=== PATIENT | male | born 1950 | race Caucasian/White ===

== ENCOUNTER 2017-03-21 09:36 | Emergency (ER) | payer OTHER, SELFPAY ==
[2017-03-21 09:39] VITALS: RESP 18; O2SAT 100
[2017-03-21 09:40] VITALS: BMI 34.7
[2017-03-21] MEDS ORDERED: Sodium Chloride 0.9% 1,000 ML IV STA (09:50)
[2017-03-21] MEDS ORDERED: Insulin Regular 1 UNITS/0.01 ML ML IV STA (09:51)
[2017-03-21] MEDS ORDERED: Metoprolol Succinate 50 mg XL Tab PO STA (09:54)
--- NOTE | 2017-03-21 10:04 | ED PDOC ---
Arrival/HPI - General Chief Complaint: Medical Clearance Time Seen by Provider: 03/21/17 09:40 Historian: Patient - History of Present Illness Narrative History of Present Illness (Text): 03/21/17 10:03 66yo male with PMHx significant for hypertension, Diabetes, CAD with 2stents in place, isacc [facility] for his medications. Patient states he have not taken his medications in 2days. He otherwise denies any somatic complaints, chest pain, nausea, vomiting, focal weakness, headache, polyuria/dipsia, any other complaint. Past Medical History - Provider Review Nursing Documentation Reviewed: Yes - Infectious Disease Hx of Infectious Diseases: None - Tetanus Immunization Tetanus Immunization: Unknown - Cardiac Hx Hypertension: Yes - Pulmonary Hx Bronchitis: No Hx Chronic Obstructive Pulmonary Disease (COPD): No Hx Emphysema: No - Neurological Hx Paralysis: No - HEENT Hx HEENT Disorder: No Hx Blind: No Hx Cataracts: No Hx Deafness: No Hx Difficulty Chewing: No Hx Epistaxis: No Hx Glaucoma: No Hx Macular Degeneration: No - Renal Hx Renal Failure: No - Endocrine/Metabolic Hx Diabetes Mellitus Type 1: Yes (DIABETES TYPE 2 Dx 15 yrs ago) Hx Hyperthyroidism: No Hx Hypothyroidism: No - Hematological/Oncological Hx Blood Transfusions: No Hx Blood Transfusion Reaction: No - Integumentary Hx Dermatological Disorder: No Hx Basal Cell Carcinoma: No Hx Eczema: No Hx Melanoma: No Hx Psoriasis: No Hx Squamous Cell Carcinoma: No - Musculoskeletal/Rheumatological Hx Musculoskeletal Disorders: Yes - Gastrointestinal Hx Crohn's Disease: No Hx Diverticulitis: No Hx Gastroesophageal Reflux: No Hx Gastrointestinal Ulcer: No Hx Liver Failure: No - Genitourinary/Gynecological Hx Genitourinary Disorders: No Hx Hematuria: No Hx Incontinence: No Hx Prostate Problems: No Hx Sexually Transmitted Diseases: No Hx Urinary Tract Infection: No - Psychiatric Hx Emotional Abuse: No Hx Physical Abuse: No Hx Substance Use: No - Past Surgical History Past Surgical History: Unable to Obtain - Surgical History Hx Amputation: No Hx Appendectomy: No Hx Cardiac Catheterization: Yes (cath by Dr Woods 07/04/2012 2 stents 1) proximal LAD 2) mid LAD) Hx Cholecystectomy: No Hx Coronary Stent: Yes Hx Gastric Bypass Surgery: No Hx Hysterectomy: No Hx Inguinal Hernia Repair: No Hx Joint Replacement: No Hx Kidney Transplant: No Hx Liver Transplant: No Hx Mastectomy: No Hx Musculoskeletal Surgery: No Hx Open Heart Surgery: Yes Hx Orthopedic Surgery: No Hx Splenectomy: No Hx Valve Replacement: No - Anesthesia Hx Anesthesia Reactions: No Hx Malignant Hyperthermia: No - Suicidal Assessment Feels Threatened In Home Enviroment: No Family/Social History - Physician Review Nursing Documentation Reviewed: Yes Family/Social History: Unknown Family HX Smoking Status: Former Smoker Hx Alcohol Use: No Hx Substance Use: No Hx Substance Use Treatment: No Allergies/Home Meds Allergies/Adverse Reactions: Allergies No Known Allergies Allergy (Verified 07/04/12 18:17) Home Medications: Home Meds Medication Instructions Recorded Confirmed Aspirin 81 mg PO DAILY 07/04/12 03/21/17 Metformin HCl [Metformin] 1,000 mg PO BID 07/04/12 03/21/17 Metoprolol Tartrate 50 mg PO BID 03/18/13 03/21/17 Clopidogrel [Plavix] 75 mg PO DAILY 03/31/16 03/21/17 GlipiZIDE [Glipizide] 10 mg PO BID 03/31/16 03/21/17 Lisinopril [Zestril] 20 mg PO BID 03/31/16 03/21/17 Review of Systems - Physician Review All systems were reviewed & negative as marked: Yes - Review of Systems Constitutional: Normal Eyes: Normal ENT: Normal Respiratory: Normal Cardiovascular: Normal Gastrointestinal: Normal Genitourinary Male: Normal Musculoskeletal: Normal Skin: Normal Neurological: Normal Endocrine: Normal Hemo/Lymphatic: Normal Psychiatric: Normal Physical Exam Vital Signs Temp Pulse Resp BP Pulse Ox 03/21/17 11:25 97.9 F 87 18 141/69 100 03/21/17 09:38 97.6 F 98 H 18 100/68 100 Temperature: Afebrile Blood Pressure: Normal Pulse: Regular Respiratory Rate: Normal Appearance: Positive for: Well-Appearing, Non-Toxic, Comfortable Pain Distress: None Mental Status: Positive for: Alert and Oriented X 3 Finger Stick Blood Glucose: 366 - Systems Exam Head: Present: Atraumatic, Normocephalic Pupils: Present: PERRL Extroacular Muscles: Present: EOMI Conjunctiva: Present: Normal Mouth: Present: Moist Mucous Membranes Neck: Present: Normal Range of Motion Respiratory/Chest: Present: Clear to Auscultation, Good Air Exchange. No: Respiratory Distress, Accessory Muscle Use Cardiovascular: Present: Regular Rate and Rhythm, Normal S1, S2. No: Murmurs Abdomen: Present: Normal Bowel Sounds. No: Tenderness, Distention, Peritoneal Signs Back: Present: Normal Inspection Upper Extremity: Present: Normal Inspection. No: Cyanosis, Edema Lower Extremity: Present: Normal Inspection. No: Edema Neurological: Present: GCS=15, CN II-XII Intact, Speech Normal Skin: Present: Warm, Dry, Normal Color. No: Rashes Psychiatric: Present: Alert, Oriented x 3, Normal Insight, Normal Concentration Medical Decision Making ED Course and Treatment: 03/21/17 15:40 Pt presented for stated history. His FS was 366 on presentation. On re evaluation s/p 1 L NS and 8units of insulin FS was 136. He had no complaint in ED. He was DC to [facility]. - Lab Interpretations Lab Results: Lab Results 03/21/17 11:05: POC Glucose (mg/dL) 164 H - Medication Orders Current Medication Orders: Discontinued Medications Aspirin (Ecotrin) 81 mg PO STAT STA Stop: 03/21/17 09:56 Last Admin: 03/21/17 10:14 Dose: 81 mg Clopidogrel Bisulfate (Plavix) 75 mg PO STAT STA Stop: 03/21/17 09:56 Last Admin: 03/21/17 10:14 Dose: 75 mg Sodium Chloride (Sodium Chloride 0.9%) 1,000 mls @ 999 mls/hr IV .Q1H1M STA Stop: 03/21/17 10:50 Last Admin: 03/21/17 10:14 Dose: 999 mls/hr eMAR Start Stop Document 03/21/17 10:14 LM (Rec: 03/21/17 10:14 [facility] [id number]) Intravenous Solution Start Date 03/21/17 Start Time 10:14 End Date 03/21/17 End time 11:15 Total Infusion Time 61 Insulin Human Regular (Humulin R) 8 units IV ONCE STA PRN Reason: Protocol Stop: 03/21/17 09:52 Last Admin: 03/21/17 10:14 Dose: 8 units eMAR Start Stop Document 03/21/17 10:14 LM (Rec: 03/21/17 10:15 [facility] [id number]) Intravenous Solution Start Date 03/21/17 Start Time 10:15 End Date 03/21/17 End time 10:17 Total Infusion Time 2 MAR Blood Glucose Document 03/21/17 10:14 [facility] (Rec: 03/21/17 10:15 [facility] [id number]) Blood Glucose Finger Stick Blood Glucose (70-120) 366 Disposition/Present on Arrival - Present on Arrival Any Indicators Present on Arrival: No History of DVT/PE: No History of Uncontrolled Diabetes: No Urinary Catheter: No History of Decub. Ulcer: No History Surgical Site Infection Following: None - Disposition Have Diagnosis and Disposition been Completed?: Yes Diagnosis: Hypertension, Hyperglycemia Disposition: HOME/ ROUTINE Disposition Time: 11:10 Patient Plan: Discharge Condition: STABLE Discharge Instructions (ExitCare): Diabetic Hyperglycemia (ED) Additional Instructions: Follow up with your doctor Return to ED for any new or worsening symptoms PT cleared for incarceration Referrals: Toni Dominguez MD [Primary Care Provider] - Follow up with primary Forms: [employer] (Polish)
[2017-03-21 11:28] VITALS: BP 141/69; PULSE 87; TEMP 97.9
== END 2017-03-21 11:28 | disposition home or self-care (01) ==
LOC: ED 09:36
DX: E10.65 Type 1 diabetes mellitus with hyperglycemia (principal); I10 Essential (primary) hypertension; I25.10 Atherosclerotic heart disease of native coronary artery without angina pectoris; Z79.82 Long term (current) use of aspirin; Z87.891 Personal history of nicotine dependence
CPT/HCPCS: 82948; 96360; 99282; J7040

== ENCOUNTER 2017-06-22 19:45 | Observation (INO) | payer OTHER ==
[2017-06-22 19:50] VITALS: BMI 32.8
--- NOTE | 2017-06-22 20:24 | ED PDOC ---
Arrival/HPI - General Chief Complaint: Chest Pain Time Seen by Provider: 06/22/17 19:48 Historian: Patient - History of Present Illness Narrative History of Present Illness (Text): CC: chest pain Patient presents to Emergency department for left substernal chest pain. Patient states he's been having difficulty with exertion and walking on inclines. Patient was recently at [facility] in January, had a cath with no stent placements. PMHx significant for hypertension, Diabetes, CAD with 2stents in place PSH: 2 stents Allergies NKDA PMD: Dr. Dominguez Cardio: Dr. Woods 06/22/17 21:31 Past Medical History - Infectious Disease Hx of Infectious Diseases: None - Tetanus Immunization Tetanus Immunization: Unknown - Cardiac Hx Cardiac Disorders: Yes Hx Hypertension: Yes - Pulmonary Hx Respiratory Disorders: No Hx Bronchitis: No Hx Chronic Obstructive Pulmonary Disease (COPD): No Hx Emphysema: No - Neurological Hx Neurological Disorder: No Hx Paralysis: No - HEENT Hx HEENT Disorder: No Hx Blind: No Hx Cataracts: No Hx Deafness: No Hx Difficulty Chewing: No Hx Epistaxis: No Hx Glaucoma: No Hx Macular Degeneration: No - Renal Hx Renal Disorder: No Hx Renal Failure: No - Endocrine/Metabolic Hx Endocrine Disorders: Yes Hx Diabetes Mellitus Type 1: Yes (DIABETES TYPE 2 Dx 15 yrs ago) Hx Hyperthyroidism: No Hx Hypothyroidism: No - Hematological/Oncological Hx Blood Disorders: No Hx Blood Transfusions: No Hx Blood Transfusion Reaction: No - Integumentary Hx Dermatological Disorder: No Hx Basal Cell Carcinoma: No Hx Eczema: No Hx Melanoma: No Hx Psoriasis: No Hx Squamous Cell Carcinoma: No - Musculoskeletal/Rheumatological Hx Musculoskeletal Disorders: Yes - Gastrointestinal Hx Gastrointestinal Disorders: No Hx Crohn's Disease: No Hx Diverticulitis: No Hx Gastroesophageal Reflux: No Hx Gastrointestinal Ulcer: No Hx Liver Failure: No - Genitourinary/Gynecological Hx Genitourinary Disorders: No Hx Hematuria: No Hx Incontinence: No Hx Prostate Problems: No Hx Sexually Transmitted Diseases: No Hx Urinary Tract Infection: No - Psychiatric Hx Emotional Abuse: No Hx Physical Abuse: No Hx Substance Use: No - Past Surgical History Past Surgical History: Unable to Obtain - Surgical History Hx Amputation: No Hx Appendectomy: No Hx Cardiac Catheterization: Yes (cath by Dr Woods 07/04/2012 2 stents 1) proximal LAD 2) mid LAD) Hx Cholecystectomy: No Hx Coronary Stent: Yes (01/2017) Hx Gastric Bypass Surgery: No Hx Hysterectomy: No Hx Joint Replacement: No Hx Kidney Transplant: No Hx Liver Transplant: No Hx Mastectomy: No Hx Musculoskeletal Surgery: No Hx Open Heart Surgery: Yes Hx Orthopedic Surgery: No Hx Splenectomy: No Hx Valve Replacement: No - Anesthesia Hx Anesthesia Reactions: No Hx Malignant Hyperthermia: No - Suicidal Assessment Feels Threatened In Home Enviroment: No Family/Social History Smoking Status: Former Smoker Hx Alcohol Use: No Hx Substance Use: No Hx Substance Use Treatment: No Allergies/Home Meds Allergies/Adverse Reactions: Allergies No Known Allergies Allergy (Verified 07/04/12 18:17) Home Medications: Home Meds Medication Instructions Recorded Confirmed Metformin HCl [Metformin] 1,000 mg PO BID 07/04/12 06/22/17 Clopidogrel [Plavix] 75 mg PO DAILY 03/31/16 06/22/17 GlipiZIDE [Glipizide] 10 mg PO BID 03/31/16 06/22/17 Ammonium Lactate 12% [Amlactin] 12 gr TP DAILY 06/22/17 06/22/17 Atorvastatin [Lipitor] 40 mg PO DAILY 06/22/17 06/22/17 Fenofibrate,Micronized 134 mg PO DAILY 06/22/17 06/22/17 [Fenofibrate] Hydrochlorothiazide [Microzide] 12.5 mg PO DAILY 06/22/17 06/22/17 Isosorbide Mononitrate [Imdur] 60 mg PO DAILY 06/22/17 06/22/17 Nitroglycerin [Nitrotab] 0.3 mg SL DAILY 06/22/17 06/22/17 Pioglitazone [Actos] 30 mg PO DAILY 06/22/17 06/22/17 Physical Exam Vital Signs Temp Pulse Pulse Resp BP BP Pulse Ox 06/22/17 20:50 93 H 14 148/79 100 06/22/17 19:50 97.6 F 91 H 91 H 20 146/83 146/83 99 Finger Stick Blood Glucose: 134 Medical Decision Making - Lab Interpretations Lab Results: 06/22/17 20:00 06/22/17 20:46 Lab Results 06/22/17 20:46: Sodium 138, Potassium 4.1, Chloride 103, Carbon Dioxide 21, Anion Gap 18, BUN 18, Creatinine 1.1, Est GFR ( Amer) > 60, Est GFR (Non- Af Amer) > 60, Random Glucose 159 H, Calcium 10.6 H, Magnesium 1.5 L, Total Bilirubin 0.4, AST 23, ALT 29, Alkaline Phosphatase 49, Lactate Dehydrogenase 401, Total Creatine Kinase 202, Troponin I < 0.01, NT-Pro-B Natriuret Pep 167, Total Protein 7.5, Albumin 4.6, Globulin 2.9, Albumin/Globulin Ratio 1.6 06/22/17 20:46: Urine Color Yellow, Urine Appearance Clear, Urine pH 6.0, Ur Specific [place] 1.020, Urine Protein Negative, Urine Glucose (UA) Negative, Urine Ketones Negative, Urine Blood Negative, Urine Nitrate Negative, Urine Bilirubin Negative, Urine Urobilinogen 0.2, Ur Leukocyte Esterase Negative 06/22/17 20:00: WBC 8.6 D, RBC 5.76, Hgb 12.6 L, Hct 39.0 L, MCV 67.7 L D, MCH 21.9 L, MCHC 32.3, RDW 16.4 H, Plt Count 334, Gran % 69.9 H, Lymph % (Auto) 19.9 L, [place] % (Auto) 7.3 H, Eos % (Auto) 2.6, Baso % (Auto) 0.3, Gran # 6.00, Lymph # 1.7, [place] # 0.6, Eos # 0.2, Baso # 0.03 - RAD Interpretation Radiology Orders: 06/22/17 20:21 CHEST PORTABLE [RAD] Stat Disposition/Present on Arrival - Present on Arrival History of DVT/PE: No History of Uncontrolled Diabetes: No Urinary Catheter: No History of Decub. Ulcer: No History Surgical Site Infection Following: None - Disposition Referrals: [employer] [facility] [place], [Primary Care Provider] - Follow up with primary Forms: [employer] (Portuguese)
[2017-06-22 20:27] LABS: BASO # 0.03 K/mm3 (0.0-2.0); BASO % 0.3 % (0.0-3.0); EOS # 0.2 (0.0-0.7); EOS % 2.6 % (1.5-5.0); GRAN % 69.9 % (50.0-68.0); HEMOGLOBIN 12.6 g/dL (14.0-18.0); LYMPH # 1.7 (1.2-3.4); LYMPH % 19.9 % (22.0-35.0); MEAN CORPUSCULAR HEMOGLOBIN 21.9 pg (25.0-35.0); MEAN CORPUSCULAR HGB CONC 32.3 g/dl (31.0-37.0); MONO # 0.6 (0.1-0.6); MONO % 7.3 % (1.0-6.0); PLATELET COUNT 334 10^3/uL (120.0-450.0); RBC 5.76 10^6/uL (3.5-6.1); RED CELL DISTRIBUTION WIDTH 16.4 % (11.5-14.5); WHITE BLOOD COUNT 8.6 10^3/ul (4.5-11.0)
[2017-06-22 20:32] LABS: MEAN CELL VOLUME 67.7 fl (80.0-105.0)
[2017-06-22 20:49] LABS: URINE BILIRUBIN NEGATIVE (NEGATIVE); URINE BLOOD NEGATIVE (NEGATIVE); URINE GLUCOSE (UA) NEGATIVE (NEGATIVE); URINE LEUKOCYTE ESTERASE NEGATIVE Leu/uL (NEGATIVE); URINE NITRATE NEGATIVE (NEGATIVE); URINE PROTEIN NEGATIVE mg/dL (<30 mg/dL); URINE UROBILINOGEN 0.2 E.U./dL (<1 E.U./dL)
[2017-06-22 20:52] LABS: URINE APPEARANCE CLEAR (CLEAR); URINE COLOR YELLOW (YELLOW)
[2017-06-22 21:05] LABS: ALB/GLOB RATIO 1.6 (1.1-1.8); ALBUMIN 4.6 g/dL (3.0-4.8); ALT/SGPT 29 U/L (7-56); AST/SGOT 23 U/L (17-59); BLOOD UREA NITROGEN 18 mg/dL (7-21); CALCIUM 10.6 mg/dL (8.4-10.5); GFR AFRICAN-AMERICAN > 60; GFR NON-AFRICAN AMERICAN > 60; MAGNESIUM 1.5 mg/dL (1.7-2.2)
[2017-06-22 21:16] LABS: B-TYPE NATRIURETIC PEPTIDE 167 pg/mL (0-450); TROPONIN I < 0.01 ng/mL
--- NOTE | 2017-06-23 00:12 | ED PDOC ---
Arrival/HPI - General Chief Complaint: Chest Pain Time Seen by Provider: 06/22/17 19:48 Historian: Patient, EMS - History of Present Illness Narrative History of Present Illness (Text): 06/23/17 19:53 66 year old male, with past medical history of hypertension, diabetes, and CAD with stent placement, presented to the Emergency department via EMS complaining of left-sided substernal chest pain since this evening. Patient informs worsening chest pain this evening exacerbated with walking flight of stairs, for which he called 911. As per EMS, patient was given 324mg of Aspirin and was brought to the Emergency department immediately after improvement to symptoms. Patient informs last cardiac catherization with no stent placement in March 2017 and last stress test with in March 2016. Patient denies any fever, chills, nausea, vomiting, abdominal pain, shortness of breath, trauma, or any other complaints. Time/Duration: Prior to Arrival Symptom Onset: Sudden Symptom Course: Worsening Quality: Aching Activities at Onset: Light Context: Walking Past Medical History - Provider Review Nursing Documentation Reviewed: Yes - Infectious Disease Hx of Infectious Diseases: None - Tetanus Immunization Tetanus Immunization: Unknown - Cardiac Hx Cardiac Disorders: Yes Hx Hypertension: Yes - Pulmonary Hx Respiratory Disorders: No Hx Bronchitis: No Hx Chronic Obstructive Pulmonary Disease (COPD): No Hx Emphysema: No - Neurological Hx Neurological Disorder: No Hx Paralysis: No - HEENT Hx HEENT Disorder: No Hx Blind: No Hx Cataracts: No Hx Deafness: No Hx Difficulty Chewing: No Hx Epistaxis: No Hx Glaucoma: No Hx Macular Degeneration: No - Renal Hx Renal Disorder: No Hx Renal Failure: No - Endocrine/Metabolic Hx Endocrine Disorders: Yes Hx Diabetes Mellitus Type 1: Yes (DIABETES TYPE 2 Dx 15 yrs ago) Hx Hyperthyroidism: No Hx Hypothyroidism: No - Hematological/Oncological Hx Blood Disorders: No Hx Blood Transfusions: No Hx Blood Transfusion Reaction: No - Integumentary Hx Dermatological Disorder: No Hx Basal Cell Carcinoma: No Hx Eczema: No Hx Melanoma: No Hx Psoriasis: No Hx Squamous Cell Carcinoma: No - Musculoskeletal/Rheumatological Hx Musculoskeletal Disorders: Yes - Gastrointestinal Hx Gastrointestinal Disorders: No Hx Crohn's Disease: No Hx Diverticulitis: No Hx Gastroesophageal Reflux: No Hx Gastrointestinal Ulcer: No Hx Liver Failure: No - Genitourinary/Gynecological Hx Genitourinary Disorders: No Hx Hematuria: No Hx Incontinence: No Hx Prostate Problems: No Hx Sexually Transmitted Diseases: No Hx Urinary Tract Infection: No - Psychiatric Hx Emotional Abuse: No Hx Physical Abuse: No Hx Substance Use: No - Past Surgical History Past Surgical History: Unable to Obtain - Surgical History Hx Amputation: No Hx Appendectomy: No Hx Cardiac Catheterization: Yes (cath by Dr Woods 07/04/2012 2 stents 1) proximal LAD 2) mid LAD) Hx Cholecystectomy: No Hx Coronary Stent: Yes (01/2017) Hx Gastric Bypass Surgery: No Hx Hysterectomy: No Hx Joint Replacement: No Hx Kidney Transplant: No Hx Liver Transplant: No Hx Mastectomy: No Hx Musculoskeletal Surgery: No Hx Open Heart Surgery: Yes Hx Orthopedic Surgery: No Hx Splenectomy: No Hx Valve Replacement: No - Anesthesia Hx Anesthesia Reactions: No Hx Malignant Hyperthermia: No - Suicidal Assessment Feels Threatened In Home Enviroment: No Family/Social History - Physician Review Nursing Documentation Reviewed: Yes Family/Social History: No Known Family HX Smoking Status: Former Smoker Hx Alcohol Use: No Hx Substance Use: No Hx Substance Use Treatment: No Allergies/Home Meds Allergies/Adverse Reactions: Allergies No Known Allergies Allergy (Verified 07/04/12 18:17) Home Medications: Home Meds Medication Instructions Recorded Confirmed Metformin HCl [Metformin] 1,000 mg PO BID 07/04/12 06/22/17 Clopidogrel [Plavix] 75 mg PO DAILY 03/31/16 06/22/17 GlipiZIDE [Glipizide] 10 mg PO BID 03/31/16 06/22/17 Ammonium Lactate 12% [Amlactin] 12 gr TP DAILY 06/22/17 06/22/17 Atorvastatin [Lipitor] 40 mg PO DAILY 06/22/17 06/22/17 Fenofibrate,Micronized 134 mg PO DAILY 06/22/17 06/22/17 [Fenofibrate] Hydrochlorothiazide [Microzide] 12.5 mg PO DAILY 06/22/17 06/22/17 Isosorbide Mononitrate [Imdur] 60 mg PO DAILY 06/22/17 06/22/17 Nitroglycerin [Nitrotab] 0.3 mg SL DAILY 06/22/17 06/22/17 Pioglitazone [Actos] 30 mg PO DAILY 06/22/17 06/22/17 Review of Systems - Physician Review All systems were reviewed & negative as marked: Yes - Review of Systems Constitutional: Normal. absent: Fevers Eyes: Normal ENT: Normal Respiratory: Normal. absent: SOB Cardiovascular: Chest Pain Gastrointestinal: Normal. absent: Abdominal Pain, Diarrhea, Nausea, Vomiting Genitourinary Male: Normal Musculoskeletal: Normal Skin: Normal Neurological: Normal Endocrine: Normal Hemo/Lymphatic: Normal Psychiatric: Normal Physical Exam Vital Signs Reviewed: Yes Vital Signs Temp Pulse Pulse Resp BP BP Pulse Ox 06/22/17 23:07 94 H 23 133/93 H 98 06/22/17 20:50 93 H 14 148/79 100 06/22/17 19:50 97.6 F 91 H 91 H 20 146/83 146/83 99 Temperature: Afebrile Blood Pressure: Normal Pulse: Regular Respiratory Rate: Normal Appearance: Positive for: Well-Appearing, Non-Toxic, Comfortable Pain Distress: None Mental Status: Positive for: Alert and Oriented X 3 Finger Stick Blood Glucose: 134 - Systems Exam Head: Present: Atraumatic, Normocephalic Pupils: Present: PERRL Extroacular Muscles: Present: EOMI Conjunctiva: Present: Normal Mouth: Present: Moist Mucous Membranes Neck: Present: Normal Range of Motion Respiratory/Chest: Present: Clear to Auscultation, Good Air Exchange. No: Respiratory Distress, Accessory Muscle Use Cardiovascular: Present: Regular Rate and Rhythm, Normal S1, S2. No: Murmurs Abdomen: Present: Normal Bowel Sounds. No: Tenderness, Distention, Peritoneal Signs Back: Present: Normal Inspection Upper Extremity: Present: Normal Inspection. No: Cyanosis, Edema Lower Extremity: Present: Normal Inspection. No: Edema Neurological: Present: GCS=15, CN II-XII Intact, Speech Normal Skin: Present: Warm, Dry, Normal Color. No: Rashes Psychiatric: Present: Alert, Oriented x 3, Normal Insight, Normal Concentration Medical Decision Making ED Course and Treatment: 06/23/17 19:53 Impression: 66 year old male presents to the Emergency department for left sided substernal chest pain. Plan: -- EKG -- Labs -- Chest X-ray -- Reassess and disposition Progress Notes: 06/23/17 20:30 EKG: Ordered, reviewed, and independently interpreted the EKG. Rate : 91 BPM Rhythm : NSR Interpretation : No ST-segment elevations or depressions, no T-wave inversions, normal intervals. 06/23/17 20:[address] Franco, who vaguely recognizes the patient and informs strong cardiac history. He recommends patient to be admitted to the hospital for further evaluation. - Lab Interpretations Lab Results: 06/22/17 20:00 06/22/17 20:46 Lab Results 06/22/17 20:46: Sodium 138, Potassium 4.1, Chloride 103, Carbon Dioxide 21, Anion Gap 18, BUN 18, Creatinine 1.1, Est GFR ( Amer) > 60, Est GFR (Non- Af Amer) > 60, Random Glucose 159 H, Calcium 10.6 H, Magnesium 1.5 L, Total Bilirubin 0.4, AST 23, ALT 29, Alkaline Phosphatase 49, Lactate Dehydrogenase 401, Total Creatine Kinase 202, Troponin I < 0.01, NT-Pro-B Natriuret Pep 167, Total Protein 7.5, Albumin 4.6, Globulin 2.9, Albumin/Globulin Ratio 1.6 06/22/17 20:46: Urine Color Yellow, Urine Appearance Clear, Urine pH 6.0, Ur Specific [place] 1.020, Urine Protein Negative, Urine Glucose (UA) Negative, Urine Ketones Negative, Urine Blood Negative, Urine Nitrate Negative, Urine Bilirubin Negative, Urine Urobilinogen 0.2, Ur Leukocyte Esterase Negative 06/22/17 20:00: WBC 8.6 D, RBC 5.76, Hgb 12.6 L, Hct 39.0 L, MCV 67.7 L D, MCH 21.9 L, MCHC 32.3, RDW 16.4 H, Plt Count 334, Gran % 69.9 H, Lymph % (Auto) 19.9 L, [place] % (Auto) 7.3 H, Eos % (Auto) 2.6, Baso % (Auto) 0.3, Gran # 6.00, Lymph # 1.7, [place] # 0.6, Eos # 0.2, Baso # 0.03 - RAD Interpretation Radiology Orders: 06/22/17 20:21 CHEST PORTABLE [RAD] Stat - EKG Interpretation Interpreted by ED Physician: Yes Type: 12 lead EKG - Medication Orders Current Medication Orders: Heparin Sodium (Porcine) (Heparin) 5,000 units SC Q12 ROMARIO PRN Reason: Protocol - Scribe Statement The provider has reviewed the documentation as recorded by the Scribbravo Beltran. All medical record entries made by the Scribe were at my direction and personally dictated by me. I have reviewed the chart and agree that the record accurately reflects my personal performance of the history, physical exam, medical decision making, and the department course for this patient. I have also personally directed, reviewed, and agree with the discharge instructions and disposition. Disposition/Present on Arrival - Present on Arrival Any Indicators Present on Arrival: Yes History of DVT/PE: No History of Uncontrolled Diabetes: No Urinary Catheter: No History of Decub. Ulcer: No History Surgical Site Infection Following: None - Disposition Have Diagnosis and Disposition been Completed?: Yes Diagnosis: Chest pain Disposition: HOSPITALIZED Disposition Time: 21:15 Condition: STABLE
[2017-06-23 03:39] LABS: TROPONIN I < 0.01 ng/mL
--- NOTE | 2017-06-23 04:49 | CP.PCM.HP ---
History of Present Illness - History of Present Illness History of Present Illness: Chief Complaint: Chest pain HPI: Patient is a 66 year old male with a past medical history of hypertension, dyslipidemia, CAD status post 2 stents, and NIDDM who presents to [facility] ED with complaints of chest pain. Patient states for the past few weeks he has been experiencing left sided substernal chest pain but this time he noticed his chest pain was more associated with exertion such as walking up a flight of stairs. Patient states the pain is a 7/10 and is improved with nitroglycerin however states he forgot to take his nitroglycerin today. Denies current chest pain, shortness of breath, nausea, vomiting, diarrhea, fevers, chills. PMD: Dr. Dominguez Surgical history: heart cath 2012 and 2016 (no stents [address]) Social history: denies tobacco, alcohol, drug abuse Medications: reviewed, please refer to MAR Family history: denies Myocardial perfusion study in 2016 reveals improvement of apical perfusion, normal gated wall motion o f left ventricle, LVEF 72% Echocardiogram performed in 2014 reveals ejection fraction greater than 70% Cardiac Catheterization done in 2012 reveals patient had single vessel proximal LAD 90% stenosis with an Ejection fraction of 60-65% Drug eluding stent resolute was given Present on Admission - Present on Admission Any Indicators Present on Admission: No Review of Systems - Constitutional Constitutional: absent: Chills, Fever, Headache - EENT Eyes: absent: Blurred Vision, Change in Vision - Cardiovascular Cardiovascular: Chest Pain, Dyspnea on Exertion. absent: Chest Pain at Rest, Palpitations - Respiratory Respiratory: Dyspnea on Exertion. absent: Cough, Wheezing - Gastrointestinal Gastrointestinal: absent: Abdominal Pain, Diarrhea, Nausea, Vomiting - Genitourinary Genitourinary: absent: Change in Urinary Stream, Dysuria - Musculoskeletal Musculoskeletal: Atrophy. absent: Arthralgias, Back Pain, Limited Range of Motion - Integumentary Integumentary: absent: Bleeding Lesions, Change in Hair - Neurological Neurological: absent: Abnormal Hearing, Abnormal Movements, Dizziness, Numbness - Psychiatric Psychiatric: absent: Anxiety, Confusion - Hematologic/Lymphatic Hematologic: absent: Easy Bleeding, Easy Bruising Past Patient History - Infectious Disease Hx of Infectious Diseases: None - Tetanus Immunizations Tetanus Immunization: Unknown - Past Social History Smoking Status: Former Smoker - CARDIAC Hx Cardiac Disorders: Yes Hx Hypertension: Yes - PULMONARY Hx Respiratory Disorders: No Hx Bronchitis: No Hx Chronic Obstructive Pulmonary Disease (COPD): No Hx Emphysema: No - NEUROLOGICAL Hx Neurological Disorder: No Hx Paralysis: No - HEENT Hx HEENT Problems: No Hx Blind: No Hx Cataracts: No Hx Deafness: No Hx Difficulty Chewing: No Hx Epistaxis: No Hx Glaucoma: No Hx Macular Degeneration: No - RENAL Hx Chronic Kidney Disease: No Hx Renal Failure: No - ENDOCRINE/METABOLIC Hx Endocrine Disorders: Yes Hx Diabetes Mellitus Type 1: Yes (DIABETES TYPE 2 Dx 15 yrs ago) Hx Hyperthyroidism: No Hx Hypothyroidism: No - HEMATOLOGICAL/ONCOLOGICAL Hx Blood Disorders: No Hx Blood Transfusions: No Hx Blood Transfusion Reaction: No - INTEGUMENTARY Hx Dermatological Problems: No Hx Basil Cell: No Hx Eczema: No Hx Melanoma: No Hx Psoriasis: No Hx Squamous Cell: No - MUSCULOSKELETAL/RHEUMATOLOGICAL Hx Musculoskeletal Disorders: Yes - GASTROINTESTINAL Hx Gastrointestinal Disorders: No Hx Crohn's Disease: No Hx Diverticulitis: No Hx Gastroesophageal Reflux: No Hx Liver Failure: No - GENITOURINARY/GYNECOLOGICAL Hx Genitourinary Disorders: No Hx Hematuria: No Hx Incontinence: No Hx Prostate Problems: No Hx Sexually Transmitted Disorders: No Hx Urinary Tract Infection: No - PSYCHIATRIC Hx Emotional Abuse: No Hx Physical Abuse: No Hx Substance Use: No - SURGICAL HISTORY Hx Amputation: No Hx Appendectomy: No Hx Cardiac Catheterization: Yes (cath by Dr Woods 07/04/2012 2 stents 1) proximal LAD 2) mid LAD) Hx Cholecystectomy: No Hx Coronary Stent: Yes (01/2017) Hx Gastric Bypass Surgery: No Hx Hysterectomy: No Hx Joint Replacement: No Hx Kidney Transplant: No Hx Liver Transplant: No Hx Mastectomy: No Hx Musculoskeletal Surgery: No Hx Open Heart Surgery: Yes Hx Orthopedic Surgery: No Hx Splenectomy: No Hx Valve Replacement: No - ANESTHESIA Hx Anesthesia Reactions: No Hx Malignant Hyperthermia: No Meds Allergies/Adverse Reactions: Allergies Allergy/AdvReac Type Severity Reaction Status Date / Time No Known Allergies Allergy Verified 07/04/12 18:17 Physical Exam - Head Exam Head Exam: ATRAUMATIC, NORMAL INSPECTION, NORMOCEPHALIC - Eye Exam Eye Exam: EOMI, Normal appearance - ENT Exam ENT Exam: Mucous Membranes Moist, Normal Exam - Neck Exam Neck exam: Positive for: Normal Inspection - Respiratory Exam Respiratory Exam: Clear to Auscultation Bilateral, NORMAL BREATHING PATTERN. absent: Accessory Muscle Use, Rhonchi, Wheezes - Cardiovascular Exam Cardiovascular Exam: REGULAR RHYTHM, +S1, +S2. absent: JVD - GI/Abdominal Exam GI & Abdominal Exam: Normal Bowel Sounds, Soft - Extremities Exam Extremities exam: Positive for: normal inspection. Negative for: calf tenderness, pedal edema - Back Exam Back exam: NORMAL INSPECTION - Neurological Exam Neurological exam: Alert, CN II-XII Intact, Oriented x3 - Psychiatric Exam Psychiatric exam: Normal Affect, Normal Mood - Skin Skin Exam: Intact, Normal Color, Warm Results - Vital Signs Recent Vital Signs: Last Vital Signs Temp 97.5 F L 06/23/17 00:51 Pulse 67 06/23/17 02:00 Resp 20 06/23/17 00:51 BP 143/84 06/23/17 00:51 Pulse Ox 98 06/22/17 23:07 - Labs Result Diagrams: 06/22/17 20:00 06/22/17 20:46 Labs: Laboratory Results - last 24 hr 06/23/17 02:20 Lactate Dehydrogenase 227 L Total Creatine Kinase 143 Troponin I < 0.01 Assessment & Plan - Assessment and Plan (Free Text) Assessment: Patient is a 66 year old male with a past medical history of hypertension, dyslipidemia, CAD status post 2 stents, and NIDDM who presents to [facility] ED with complaints of chest pain. Plan: Chest pain r/o ACS -Cardiology consulted; results pending -Repeat EKG ordered -CXR -Troponins negative x2 -Lipid panel,TSH,HgA1c ordered; results pending -PT,PTT ordered; results pending -NPO -BNP; follow up -Echocardiogram ordered Coronary Artery Disease status post 2 stents -Nitroglycerin -Isosorbide mononitrate -Plavix Hypertension -Continue to monitor BP -HCTZ DVT/GI prophylaxis Heparin/Protonix
[2017-06-23 07:28] LABS: BASO # 0.02 K/mm3 (0.0-2.0); BASO % 0.3 % (0.0-3.0); EOS # 0.1 (0.0-0.7); EOS % 2.2 % (1.5-5.0); GRAN # 3.8 (1.4-6.5); GRAN % 58.8 % (50.0-68.0); LYMPH # 1.9 (1.2-3.4); LYMPH % 28.9 % (22.0-35.0); MEAN CELL VOLUME 67.2 fl (80.0-105.0); MEAN CORPUSCULAR HEMOGLOBIN 21.3 pg (25.0-35.0); MEAN CORPUSCULAR HGB CONC 31.7 g/dl (31.0-37.0); MEAN PLATELET VOLUME 10.6 fl (7.0-11.0); MONO # 0.6 (0.1-0.6); MONO % 9.8 % (1.0-6.0); RBC 5.64 10^6/uL (3.5-6.1); WHITE BLOOD COUNT 6.5 10^3/ul (4.5-11.0)
[2017-06-23 07:42] LABS: INR 1.02 (0.93-1.08); PARTIAL THROMBOPLASTIN TIME 28.6 Seconds (25.1-36.5); PROTHROMBIN TIME 11.7 SECONDS (9.4-12.5)
[2017-06-23 07:53] LABS: ALB/GLOB RATIO 1.5 (1.1-1.8); ALBUMIN 4.4 g/dL (3.0-4.8); ALT/SGPT 18 U/L (7-56); AST/SGOT 26 U/L (17-59); BLOOD UREA NITROGEN 18 mg/dL (7-21); GFR AFRICAN-AMERICAN > 60; GFR NON-AFRICAN AMERICAN > 60; HDL CHOLESTEROL 52 mg/dL (29-60)
[2017-06-23 07:57] LABS: TROPONIN I < 0.01 ng/mL
[2017-06-23 08:02] LABS: LDL CHOLESTEROL 99 mg/dL (0-129)
[2017-06-23] MEDS: Insulin Reg-MEDIUM-Coverage SC SCH ×3 (08:29→17:55)
--- NOTE | 2017-06-23 08:46 | RAD ---
HISTORY: Chest pain COMPARISON: 03/18/2013. FINDINGS: LUNGS: The lungs are well inflated and clear. PLEURA: No significant pleural effusion identified, no pneumothorax apparent. CARDIOVASCULAR: Normal. OSSEOUS STRUCTURES: No significant abnormalities. VISUALIZED UPPER ABDOMEN: Normal. OTHER FINDINGS: None. IMPRESSION: No active pulmonary disease.
[2017-06-23 09:40] VITALS: O2SAT 98
[2017-06-23 13:56] VITALS: BP 132/85
[2017-06-23 14:05] VITALS: RESP 20; TEMP 98.3
[2017-06-23 14:33] VITALS: PULSE 71
--- NOTE | 2017-06-23 15:41 | CARD ---
APPROVED REPORT EXAM: Two-dimensional and M-mode echocardiogram with Doppler and color Doppler. INDICATION Dyspnea 2D DIMENSIONS Left Atrium (2D)4.6 (1.6-4.0cm)IVSd1.2 (0.7-1.1cm) LVDd4.7 (3.9-5.9cm)PWd1.2 (0.7-1.1cm) LVDs3.0 (2.5-4.0cm)FS (%) 35.5 % LVEF (%)64.8 (>50%) M-Mode DIMENSIONS Aortic Root3.60 (2.2-3.7cm)Aortic Cusp Exc.1.80 (1.5-2.0cm) Aortic Valve AoV Peak Wpbcwdyg823.0cm/Juve Peak GR.9mmHgAI P 1/2 [id number] Mitral Valve MV E Iaryemon36.1cm/sMV A Wglqdctu42.3cm/sE/A ratio0.8 TDI Lateral E' Peak V6.73cm/sMedial E' Peak V4.48cm/sE/Lateral E'7.9 E/Medial E'11.9 Pulmonary Valve PV Peak Fzdgcsse79.4cm/sPV Peak Grad.3mmHg Tricuspid Valve TR Peak Agremvkn360ka/sRAP [id number] Peak Gr.15mmHg [id number] LEFT VENTRICLE The left ventricle is normal size. There is borderline concentric left ventricular hypertrophy. The left ventricular function is normal. The left ventricular ejection fraction is within the normal range. There is normal LV segmental wall motion. Transmitral Doppler flow pattern is Grade I-abnormal relaxation pattern. RIGHT VENTRICLE The right ventricle is borderline dilated. There is normal right ventricular wall thickness. The right ventricular systolic function is normal. ATRIA The left atrium is mildly dilated. The right atrium size is normal. AORTIC VALVE The aortic valve is mildly thickened. There is mild aortic regurgitation. There is no aortic valvular stenosis. MITRAL VALVE The mitral valve is normal in structure. There is no mitral valve regurgitation noted. There is no mitral valve stenosis. TRICUSPID VALVE The tricuspid valve is normal in structure. There is no tricuspid valve regurgitation noted. GREAT VESSELS The aortic root is normal in size. The IVC is normal in size and collapses >50% with inspiration. PERICARDIAL EFFUSION There is a small loculated anterior pericardial effusion. <Conclusion> The left ventricle is normal size. There is borderline concentric left ventricular hypertrophy. The left ventricular function is normal. The left ventricular ejection fraction is within the normal range. There is normal LV segmental wall motion. Transmitral Doppler flow pattern is Grade I-abnormal relaxation pattern. There is mild aortic regurgitation.
--- NOTE | 2017-06-23 18:32 | CP.PCM.DIS ---
Provider - Provider Date of Admission: 06/22/17 23:33 Attending physician: Armin Perea MD Consults: Cardio: Chuck Time Spent in preparation of Discharge (in minutes): 70 Hospital Course - Lab Results Lab Results: Most Recent Lab Values WBC 6.5 10^3/ul (4.5-11.0) D 06/23/17 07:00 RBC 5.64 10^6/uL (3.5-6.1) 06/23/17 07:00 Hgb 12.0 g/dL (14.0-18.0) L 06/23/17 07:00 Hct 37.9 % (42.0-52.0) L 06/23/17 07:00 MCV 67.2 fl (80.0-105.0) L 06/23/17 07:00 MCH 21.3 pg (25.0-35.0) L 06/23/17 07:00 MCHC 31.7 g/dl (31.0-37.0) 06/23/17 07:00 RDW 16.0 % (11.5-14.5) H 06/23/17 07:00 Plt Count 308 10^3/uL (120.0-450.0) 06/23/17 07:00 MPV 10.6 fl (7.0-11.0) 06/23/17 07:00 Gran % 58.8 % (50.0-68.0) 06/23/17 07:00 Lymph % (Auto) 28.9 % (22.0-35.0) 06/23/17 07:00 Villalba % (Auto) 9.8 % (1.0-6.0) H 06/23/17 07:00 Eos % (Auto) 2.2 % (1.5-5.0) 06/23/17 07:00 Baso % (Auto) 0.3 % (0.0-3.0) 06/23/17 07:00 Gran # 3.80 (1.4-6.5) 06/23/17 07:00 Lymph # 1.9 (1.2-3.4) 06/23/17 07:00 Villalba # 0.6 (0.1-0.6) 06/23/17 07:00 Eos # 0.1 (0.0-0.7) 06/23/17 07:00 Baso # 0.02 K/mm3 (0.0-2.0) 06/23/17 07:00 PT 11.7 SECONDS (9.4-12.5) 06/23/17 07:00 INR 1.02 (0.93-1.08) 06/23/17 07:00 APTT 28.6 Seconds (25.1-36.5) 06/23/17 07:00 Sodium 141 mmol/L (132-148) 06/23/17 07:00 Potassium 4.2 mmol/L (3.6-5.0) 06/23/17 07:00 Chloride 103 mmol/L (98-107) 06/23/17 07:00 Carbon Dioxide 28 mmol/L (21-33) 06/23/17 07:00 Anion Gap 15 (10-20) 06/23/17 07:00 BUN 18 mg/dL (7-21) 06/23/17 07:00 Creatinine 1.1 mg/dl (0.8-1.5) 06/23/17 07:00 Est GFR ( Amer) > 60 06/23/17 07:00 Est GFR (Non-Af Amer) > 60 06/23/17 07:00 POC Glucose (mg/dL) 245 mg/dL (65-110) H 06/23/17 16:29 Random Glucose 146 mg/dL (70-110) H 06/23/17 07:00 Hemoglobin A1c 8.5 % (4.2-6.5) H 06/23/17 07:00 Calcium 10.0 mg/dL (8.4-10.5) 06/23/17 07:00 Magnesium 1.7 mg/dL (1.7-2.2) 06/23/17 09:00 Total Bilirubin 0.5 mg/dL (0.2-1.3) 06/23/17 07:00 AST 26 U/L (17-59) 06/23/17 07:00 ALT 18 U/L (7-56) 06/23/17 07:00 Alkaline Phosphatase 42 U/L (38-126) 06/23/17 07:00 Lactate Dehydrogenase 267 U/L (333-699) L 06/23/17 07:00 Total Creatine Kinase 137 U/L (35-230) 06/23/17 07:00 Troponin I < 0.01 ng/mL 06/23/17 07:00 NT-Pro-B Natriuret Pep 160 pg/mL (0-450) 06/23/17 07:00 Total Protein 7.4 g/dL (5.8-8.3) 06/23/17 07:00 Albumin 4.4 g/dL (3.0-4.8) 06/23/17 07:00 Globulin 3.0 gm/dL 06/23/17 07:00 Albumin/Globulin Ratio 1.5 (1.1-1.8) 06/23/17 07:00 Triglycerides 98 mg/dL (35-160) 06/23/17 07:00 Cholesterol 168 mg/dL (130-200) 06/23/17 07:00 LDL Cholesterol Direct 99 mg/dL (0-129) 06/23/17 07:00 HDL Cholesterol 52 mg/dL (29-60) 06/23/17 07:00 TSH 3rd Generation 1.26 mIU/mL (0.46-4.68) 06/23/17 07:00 Urine Color Yellow (YELLOW) 06/22/17 20:46 Urine Appearance Clear (CLEAR) 06/22/17 20:46 Urine pH 6.0 (4.7-8.0) 06/22/17 20:46 Ur Specific [place] 1.020 (1.005-1.035) 06/22/17 20:46 Urine Protein Negative mg/dL (<30 mg/dL) 06/22/17 20:46 Urine Glucose (UA) Negative mg/dL (NEGATIVE) 06/22/17 20:46 Urine Ketones Negative mg/dL (NEGATIVE) 06/22/17 20:46 Urine Blood Negative (NEGATIVE) 06/22/17 20:46 Urine Nitrate Negative (NEGATIVE) 06/22/17 20:46 Urine Bilirubin Negative (NEGATIVE) 06/22/17 20:46 Urine Urobilinogen 0.2 E.U./dL (<1 E.U./dL) 06/22/17 20:46 Ur Leukocyte Esterase Negative Rui/uL (NEGATIVE) 06/22/17 20:46 - Hospital Course Hospital Course: Patient is a 66 year old male with a past medical history of hypertension, dyslipidemia, CAD status post 2 stents, and NIDDM who presents to [facility] ED with complaints of chest pain. EKG was obtained did not show any acute ST changes or ischemia. Cardiology was consulted. Chest xray was obtained did not show any active pulmonary disease. Troponins were taken 3 times and negative. Lipid Panel , TSH, A1c wee all ordered and reviewed. Patient was given nitroglycerin for pain if needed, all home medications were continued and proper prophylaxis was given for GI and DVT prevention. Patient requested to leave AMA all risks were discussed and patient agreed to sign out. Discharge Exam - Head Exam Head Exam: ATRAUMATIC, NORMAL INSPECTION, NORMOCEPHALIC - Eye Exam Eye Exam: EOMI, Normal appearance - Respiratory Exam Respiratory Exam: Clear to PA & Lateral, NORMAL BREATHING PATTERN - Cardiovascular Exam Cardiovascular Exam: REGULAR RHYTHM, +S1, +S2 - Neurological Exam Neurological exam: Alert, Oriented x3 Discharge Plan - Follow Up Plan Condition: STABLE Disposition: AGAINST MEDICAL ADVICE
--- NOTE | 2017-06-24 16:11 | CARD ---
APPROVED REPORT EKG Measurement Heart [id number] <Conclusion> Normal sinus rhythm Cannot rule out Anterior infarct, age undetermined Abnormal ECG
--- NOTE | 2017-06-24 16:13 | CARD ---
APPROVED REPORT EKG Measurement Heart [id number] <Conclusion> Normal sinus rhythm Normal ECG
== END 2017-06-23 18:20 | disposition left against medical advice (07) ==
LOC: ED 19:45 → ERH 23:33 → 3RSO 06-23 00:26
PROVIDERS: ADMIT Internal Medicine; ATTEND Internal Medicine
DX: R07.2 Precordial pain (principal); I10 Essential (primary) hypertension; E11.9 Type 2 diabetes mellitus without complications; E78.5 Hyperlipidemia, unspecified; I25.10 Atherosclerotic heart disease of native coronary artery without angina pectoris; Z79.84 Long term (current) use of oral hypoglycemic drugs; Z95.5 Presence of coronary angioplasty implant and graft; Z87.891 Personal history of nicotine dependence
CPT/HCPCS: 36415; 71045; 80053; 80061; 81003; 82550; 82948; 83036; 83615; 83735; 83880; 84443; 84484; 85025; 85610; 85730; 93005; 93306; 99285; C9113; G0378; J1644